=== PATIENT | female | born 1950 | race Caucasian/White ===

== ENCOUNTER 2021-06-22 00:24 | Inpatient (IN) | payer MEDICARE, OTHER ==
[2021-06-22] VITALS (42 sets, daily range): BP systolic 74–142; BP diastolic 35–81
[~2021-06-22 00:24] MED LIST: ADVAIR 250-501 EACH INH; ALLEGRA-D 12 H1 EAC1 PO; AMARYL2 M1 PO; B-12500 MCG PO; COREG3.125 MG PO; FLEXERIL PO; FUROSEMIDE 40 M40 MG PO; GABAPENTIN100 MG PO; IPRAT-ALBUT 0.5-3 ML INH; LEVEMIR100 UNIT/1 SUBQ; LISINOPRIL5 MG PO; MAGNESIUM250 M1 PO; NORCO5 PO; OMEPRAZOLE 20 M20 M1 PO; PREDNISONE 10 M10 MG PO; PRENATABS RX T1 EAC1 PO; PROAIR DIGIHAL90 MCG INH; TRADJENTA5 MG; XARELTO10 MG PO; ZINC50 M3 PO
[2021-06-22 03:45] LABS: ABSOLUTE BASOPHILS 0.1 thou/uL (0.0-0.2); ABSOLUTE EOSINOPHILS 0.1 thou/uL (0.0-0.7); ABSOLUTE LYMPHOCYTES 1.9 thou/uL (0.8-5.3); ABSOLUTE MONOCYTES 0.8 thou/uL (0.0-1.2); BASOPHILS 1.1 %; EOSINOPHILS 0.7 %; HEMATOCRIT 30.1 % (37.0-47.0); HEMOGLOBIN 9.7 gm/dL (12.0-15.0); LYMPHOCYTES 19.7 %; MCHC 32.3 g/dL (28.0-37.0); MCV 102.2 fL (80.0-100.0); MPV 9.2 fl. (7.2-11.1); NUCLEATED RBCS 0 /100WBC; PLATELET COUNT* 189 thou/uL (150-400); POLYS 70.5 %; RBC 2.94 mil/uL (4.20-5.00); WBC 9.9 thou/uL (4.0-11.0)
[2021-06-22 03:52] LABS: CALCIUM 7.4 mg/dL (8.5-10.1); CREATININE 2.2 mg/dL (0.6-1.3); POTASSIUM 4.2 mmol/L (3.5-5.1)
[2021-06-22 03:57] LABS: ALBUMIN 2.2 g/dL (3.4-5.0); MAGNESIUM 1.8 mg/dL (1.8-2.4); PHOSPHORUS* 2.4 mg/dL (2.5-4.9); TOTAL BILIRUBIN 0.7 mg/dL (<0.1-1.0); TOTAL PROTEIN 4.6 g/dL (6.4-8.2)
[2021-06-22 04:24] LABS: BE 5.8 mmol/L (-2 to +3); pH 7.436 (7.340-7.450)
[2021-06-22 04:26] LABS: PO2 148.5 mmHg (75.0-100.0)
--- NOTE | 2021-06-22 10:35 | EKG ---
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 : 1950 Requested By: Elizabeth Carey Order Number: [id number] Hugo MD: Nathaniel Jaramillo Measurements Intervals [place] Rate: 107 P: 30 MS: 129 QRS: 44 QRSD: 90 T: 48 QT: 335 QTc: 447 Interpretive Statements Sinus tachycardia Multiple premature complexes, vent & supraven Abnormal R-wave progression, early transition No previous ECG available for comparison Electronically Signed On 06-22-2021 10:35:23 CDT by Nathaniel Jaramillo [email or web address] <ELECTRONICALLY SIGNED> By: Nathaniel Jaramillo MD, FAC 06/22/21 1035 9 9 Nathaniel Jaramillo MD, [facility] /EPI
[2021-06-22 11:35] LABS: NUCLEATED RBCS 0 /100WBC
[2021-06-22 11:38] LABS: HEMOGLOBIN 9.3 gm/dL (12.0-15.0); MCH 32.5 pg (26.0-34.0); MCHC 32.2 g/dL (28.0-37.0); MCV 101.1 fL (80.0-100.0); MPV 9.2 fl. (7.2-11.1); PLATELET COUNT* 183 thou/uL (150-400); RBC 2.87 mil/uL (4.20-5.00); RDW-CV 15.4 % (10.5-14.5); WBC 9.3 thou/uL (4.0-11.0)
[2021-06-22 11:50] LABS: ALBUMIN 2.1 g/dL (3.4-5.0); APTT 23.1 Seconds (25.0-31.3); CALCIUM 7.8 mg/dL (8.5-10.1); MAGNESIUM 1.9 mg/dL (1.8-2.4); POTASSIUM 3.6 mmol/L (3.5-5.1); PROTIME 10.5 Seconds (9.20-11.50); TOTAL BILIRUBIN 0.6 mg/dL (<0.1-1.0)
[2021-06-22 12:26] LABS: ABSOLUTE EOSINOPHILS 0.2 thou/uL (0.0-0.7); ABSOLUTE MONOCYTES 0.3 thou/uL (0.0-1.2); ABSOLUTE NEUTROPHILS 6.9 thou/uL (1.6-8.1)
[2021-06-22 12:27] LABS: PLATELET ESTIMATE ADEQUATE
--- NOTE | 2021-06-22 14:19 | 2DMMODE ---
[place] [address] 2 D/M-MODE ECHOCARDIOGRAM Name: KACIE TRUONG [facility] [place].#: [id number] Admission: 06/22/21 Attend Phys: Elizabeth Carey Discharge: Date of : 54 Date of Service: 06/22/21 1419 Report #: [id number] THIS REPORT FOR: cc: Pollo Tamez MD, Ram MD Holkins,Nathaniel Thomas MD [facility] ~ APPROVED REPORT Study performed: 06/22/2021 10:44:02 EXAM: Comprehensive 2D, Doppler, and color-flow Echocardiogram Patient Location: In-Patient Room #: [facility] Status: routine BSA: 1.94 HR: 109 bpm BP: 129/35 mmHg Rhythm: NSR Other Information Study Quality: Good Indications resp failure 2D Dimensions IVSd: 11.04 (7-11mm) LVOT Diam: 20.06 (18-24mm) LVDd: 40.97 mm PWd: 10.62 (7-11mm) Ascending Ao: 29.80 (22-36mm) LVDs: 23.85 (25-40mm) Aortic Root: 27.71 mm Volumes Left Atrial Volume (Systole) LA ESV Index: 12.60 mL/m2 Aortic Valve AoV Peak Reggie.: 1.50 m/s AO Peak Gr.: 9.04 mmHg LVOT Max P.30 mmHg AO Mean Gr.: 5.67 mmHg LVOT Mean P.39 mmHg LVOT Max V: 1.04 m/s AO V2 VTI: 25.27 cm LVOT Mean V: 0.73 m/s NICK (VTI): 2.02 cm2 LVOT V1 VTI: 16.13 [place] [address] 2 D/M-MODE ECHOCARDIOGRAM Name: KACIE TRUONG Room: [address] IN ..#: [id number] Admission: 06/22/21 Attend Phys: Elizabeth Carey Discharge: Date of : 54 Date of Service: 06/22/21 1419 Report #: [id number] Mitral Valve E/A Ratio: 0.73 MV Decel. Time: 314.24 ms MV E Max Reggie.: 0.64 m/s MV PHT: 91.13 ms MVA (PHT): 2.41 cm2 TDI E/Medial E': 9.14 Medial E' Reggie.: 0.07 m/s Pulmonary Valve PV Peak Reggie.: 1.06 m/s PV Peak Gr.: 4.52 mmHg Left Ventricle The left ventricle is normal size. There is normal LV segmental wall motion. There is normal left ventricular wall thickness. Left ventricular systolic function is normal. The left ventricular ejection fraction is within the normal range. LVEF is 65-70%. Grade I - abnormal relaxation pattern. Right Ventricle The right ventricle is normal size. The right ventricular systolic function is normal. Atria The left atrium size is normal. The right atrium size is normal. Aortic Valve The aortic valve is normal in structure. No aortic regurgitation is present. There is no aortic valvular stenosis. Mitral Valve Mild mitral annular calcification. There is no mitral valve regurgitation noted. No evidence of mitral valve stenosis. Tricuspid Valve The tricuspid valve is normal in structure. Trace tricuspid regurgitation. Unable to assess PA pressure. Pulmonic Valve The pulmonary valve is normal in structure. There is no pulmonic valvular regurgitation[place] [address] 2 D/M-MODE ECHOCARDIOGRAM Name: DIONNEKACIE Stover Room: [address] IN [facility]#: [id number] Admission: 06/22/21 Attend Phys: Elizabeth Carey Discharge: Date of : 54 Date of Service: 06/22/21 1419 Report #: [id number] The aortic root is normal in size. IVC is normal in size and collapses >50% with inspiration. Pericardium There is no pericardial effusion. <Conclusion> The left ventricle is normal size. There is normal left ventricular wall thickness. Left ventricular systolic function is normal. The left ventricular ejection fraction is within the normal range. LVEF is 65-70%. Grade I - abnormal relaxation pattern. The right ventricle is normal size. The left atrium size is normal. The aortic valve is normal in structure. Mild mitral annular calcification. The tricuspid valve is normal in structure. IVC is normal in size and collapses >50% with inspiration. There is no pericardial effusion. There is normal LV segmental wall motion. <ELECTRONICALLY SIGNED> By: Nathaniel Jaramillo MD, FACC 06/22/21 1419 1419 141 Nathaniel Jaramillo MD, FACC /INF
[2021-06-22 18:44] LABS: URINE BILIRUBIN NEGATIVE (Negative); URINE BLOOD 1+ (Negative); URINE CLARITY CLEAR; URINE COLOR YELLOW; URINE GLUCOSE-RANDOM 2+ (Negative); URINE KETONES 1+ (Negative); URINE LEUKOCYTES-REFLEX NEGATIVE (Negative); URINE NITRITE-REFLEX NEGATIVE (Negative); URINE PROTEIN NEGATIVE (Negative); URINE UROBILINOGEN 0.2 E.U./dl (0.2-1.0)
[2021-06-22 18:56] LABS: SQUAMOUS 0-3 Few /LPF (0-3)
[2021-06-22 18:57] LABS: BACTERIA-REFLEX None Seen /HPF (None Seen); CASTS None Seen /LPF (None Seen); URIC ACID CRYSTALS >10 Many /LPF (None Seen); URINE RBC 0-2 Rare /HPF (0-2)
[2021-06-22 18:58] LABS: MUCUS None Seen strn/LPF (None Seen); URINE WBC-REFLEX None Seen /HPF (0-5)
--- NOTE | 2021-06-22 19:06 | CON ---
[address] [address] CONSULTATION Name: KACIE TRUONG Room: [address] IN M.R.#: [id number] Admission: 06/22/21 Attend Phys: Mulu Perez Discharge: Date of : 54 Report #: [id number] THIS REPORT FOR: cc: Pollo Tamez MD, Ram MD Pervez, Adeel MD ~ DATE OF CONSULTATION: 06/22/2021 REQUESTING PHYSICIAN: Elizabeth Carey MD INDICATION FOR CONSULTATION: Acute hypoxemic/hypercarbic respiratory failure/ventilator management. HISTORY OF PRESENT ILLNESS: A 70-year-old female with past medical history as mentioned below. Her previous workup was at another hospital, therefore information available is limited. However, the patient is noted to have a history of COPD and is on oxygen detention. She is also reported to have had chronic kidney disease. I do not have her baseline creatinine available. 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 The patient, however, developed respiratory distress and altered mental status and had to be endotracheally intubated yesterday. She arrived by ambulance at [facility] and then was transferred here. Her initial pCO2 was markedly elevated at 94.5. The patient at this time is on the ventilator with a 40% FiO2 and 8 of PEEP. She is ventilating and oxygenating adequately. She, however, remains actively bronchospastic. She is also having significant tachycardia, is in a narrow complex irregular rhythm. She is hypotensive and is requiring phenylephrine, but is only low dose at 27. She is also receiving propofol at 20. She has had a chest x-ray performed this morning. I do not see any pulmonary vascular congestion on the chest x-ray and I also do not see any large infiltrates. It is possible that there are small infiltrates or pleural effusions at bilateral lung bases. The patient does have a central line in place. She is febrile low grade at 37.8. She does have some swelling of lower extremities on exam. The patient is on the ventilator and therefore is unable to provide a further history or review of systems. PAST MEDICAL HISTORY: COPD, on oxygen detention, chronic kidney disease, has seen kidney doctors in the past, I do not have her baseline creatinine. She, however, has been on Xarelto, which likely indicates that her creatinine was not high enough to contraindicate Xarelto for a DVT in the right upper extremity. This was recently held for a planned vascular stent. Right lower lobe lung lobectomy indication not known. Gastroesophageal reflux disease, back pain, cataract and retinal surgery, hyperlipidemia. She has had irregular heart [facility] [address] [place] [address] CONSULTATION Name: KACIE TRUONG Room: [address] ADM IN .R.#: [id number] Admission: 06/22/21 Attend Phys: Mulu Perez Discharge: Date of : 54 Report #: [id number] rhythm in the past as well. SOCIAL HISTORY: Extensive history of smoking, unable to quantify at this time. No known history of heavy alcohol use or illegal drug use. CURRENT MEDICATIONS: List in [facility] reviewed. HOME MEDICATIONS: List in [facility] reviewed. ALLERGIES: SULFONAMIDE ANTIBIOTICS AND CERTAIN ADHESIVES. FAMILY HISTORY: No pertinent family history known at this time. PHYSICAL EXAMINATION: VITAL SIGNS: She is tachycardic and irregular rhythm. It is varying from 120-150, narrow complex. Blood pressure is 120/50, but she is on 27 of leonela and propofol of 20. Temperature is 37.8. She is breathing at 20. The set rate on the ventilator is 20. HEENT: Head is normocephalic and atraumatic. Endotracheal tube is in good position. NECK: Does not show raised JVP, asymmetry, mass or lymph nodes. CHEST: Symmetrical expansion on inspection and palpation. On auscultation, there are loud inspiratory as well as expiratory wheezes despite the fact that the patient is not overbreathing the ventilator. She appears to have increased work of breathing and appears to be uncomfortable. HEART: Irregular, tachycardia noted on auscultation as well. ABDOMEN: Soft and nontender. EXTREMITIES: Lower extremities do show 2+ edema bilaterally. There is no calf tenderness. SKIN: Dry and intact. NEUROLOGIC: Moves all extremities bilaterally equally and spontaneously with no focal deficit identified. LABORATORY DATA: The patient's chest x-ray is as described above. I reviewed both the films as well as the report. The patient's x-ray of the abdomen is unremarkable. The patient's lab work is in [facility] from this morning and reviewed. I ordered repeat labs now. This is pending. The patient's arterial blood gas from this morning also in [facility] reviewed. ASSESSMENT AND PLAN: 1. Acute on chronic hypercarbic respiratory failure. The patient is actively bronchospastic at this time. I would therefore sedate her more. She is hypotensive; however, I feel that there is still room to go up on phenylephrine. Therefore, we will go up on propofol. We will start fentanyl. If needed, [place] [address] CONSULTATION Name: KACIE TRUONG Room: [address] IN M.R.#: [id number] Admission: 06/22/21 Attend Phys: Mulu Perez Discharge: Date of : 54 Report #: [id number] will give p.r.n. Versed. If hypotension worsens, we can consider switching her over to Versed drip later on. We will decrease PEEP to 5 if blood pressure remains on the lower side. 2. Acute exacerbation of chronic obstructive pulmonary disease. She appears to be very bronchospastic on my exam. We will give Solu-Medrol 125 mg IV stat. We will subsequently start with 80 mg q.8 h. She is very tachycardic and tachycardia appears to be worsening and we are giving her breathing treatments. Therefore, we are increasing sedation as above. Hopefully, as a result of increase in sedation, her heart rate will come down and we will be able to give her more nebulized bronchodilators. 3. Hypotension/renal failure. The patient is ventilating and oxygenating adequately at this time; therefore, I intend to give her more IV fluids. I ordered a bolus of albumin now. I also ordered stat labs. Unless her creatinine is improving, I would be inclined to increase her current IV fluid rate. I may in fact consider bolusing her with more IV fluids as well. We can certainly diurese her later. 4. Fever/possible sepsis/pulmonary infiltrates. I do not see any large pulmonary infiltrates on the chest x-ray. It is possible that there are some small basilar infiltrates present. Regardless, she is in renal failure. She is hypotensive and she does have a low-grade fever; therefore, we will continue broad-spectrum antibiotics. She is very high risk for nephrotoxicity from vancomycin; therefore, I discontinued vancomycin. We will start linezolid. She remains on Zosyn. More cultures and serologies are also ordered. 5. Narrow complex tachycardia. I understand per Cardiology, she is having a multifocal atrial tachycardia. Hopefully, with improvement in respiratory status and sedation, this will improve. I will also go ahead and give her some magnesium sulfate IV. 6. Right upper extremity deep venous thrombosis. Down the line, we will plan to obtain upper as well as lower extremity venous Dopplers. Regardless for now, I agree with anticoagulating her. She has already had an echocardiogram but she is ordered Lovenox for anticoagulation. We will see trend on creatinine. If the creatinine is remaining elevated, then I will be inclined to switch her Lovenox over to IV heparin. 7. Gastroesophageal reflux disease, PPI IV. 8. Clostridium difficile prophylaxis. We will start Lactinex. 9. History of diabetes, on insulin sliding scale. The patient [place] [address] CONSULTATION Name: KACIE TRUONG Room: [address] ADM IN M.R.#: [id number] Admission: 06/22/21 Attend Phys: Mulu Perez Discharge: Date of : 54 Report #: [id number] Total time spent providing critical care to this patient today exceeds 50 minutes. <ELECTRONICALLY SIGNED> By: Sp Munoz MD 06/22/21 1906 1034 [id number] Munoz MD /nt
[2021-06-23] VITALS (56 sets, daily range): BP systolic 80–143; BP diastolic 41–82
[2021-06-23 03:34] LABS: ABSOLUTE LYMPHOCYTES 0.6 thou/uL (0.8-5.3); ABSOLUTE MONOCYTES 0.2 thou/uL (0.0-1.2); ABSOLUTE NEUTROPHILS 5.8 thou/uL (1.6-8.1); BASOPHILS 0.7 %; HEMATOCRIT 24.7 % (37.0-47.0); HEMOGLOBIN 8.1 gm/dL (12.0-15.0); LYMPHOCYTES 9.3 %; MCH 32.9 pg (26.0-34.0); MCHC 32.8 g/dL (28.0-37.0); MCV 100.3 fL (80.0-100.0); MONOCYTES 2.8 %; MPV 9.4 fl. (7.2-11.1); NUCLEATED RBCS 0 /100WBC; PLATELET COUNT* 173 thou/uL (150-400); POLYS 87.2 %; RBC 2.46 mil/uL (4.20-5.00); RDW-CV 15.7 % (10.5-14.5); WBC 6.6 thou/uL (4.0-11.0)
[2021-06-23 03:59] LABS: PHOSPHORUS* 2.4 mg/dL (2.5-4.9)
[2021-06-23 04:03] LABS: ALBUMIN 2.9 g/dL (3.4-5.0); CALCIUM 7.9 mg/dL (8.5-10.1); CREATININE 1.4 mg/dL (0.6-1.3); MAGNESIUM 2.5 mg/dL (1.8-2.4); POTASSIUM 3.8 mmol/L (3.5-5.1); TOTAL BILIRUBIN 0.7 mg/dL (<0.1-1.0); TOTAL PROTEIN 5.4 g/dL (6.4-8.2)
[2021-06-23 09:07] LABS: BE 2.7 mmol/L (-2 to +3); PCO2 30.9 mmHg (35.0-45.0)
[2021-06-23 09:08] LABS: PO2 136.8 mmHg (75.0-100.0)
--- NOTE | 2021-06-23 16:45 | EKG ---
[place] [address] ELECTROCARDIOGRAM REPORT Name: KACIE TRUONG Room: [address] ADM IN M.R.#: [id number] Admission: 06/22/21 Attend Phys: Elizabeth Carey Discharge: Date of : 54 Date of Service: 06/23/21 1125 Report #: [id number] THIS REPORT FOR: //name// 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1950 Requested By: Elizabeth Carey Order Number: [id number] Reading MD: Srinivasan Hopkins Measurements Intervals [place] Rate: 47 P: 27 NE: 158 QRS: 20 QRSD: 131 T: 29 QT: 530 QTc: 469 Interpretive Statements Sinus bradycardia Atrial premature complex Nonspecific intraventricular conduction delay Diffuse ST elevation, consider pericarditis Baseline wander in lead(s) I,II,aVR Compared to ECG 06/22/2021 03:00:15 Atrial premature complex(es) now present Intraventricular conduction delay now present ST (T wave) deviation now present Sinus tachycardia no longer present Electronically Signed On 06-23-2021 16:45:19 CDT by Srinivasan Hopkins [email or web address] <ELECTRONICALLY SIGNED> By: Srinivasan Hopkins MD, [facility] 06/23/21 1645 1125 1125 Srinivasan Hopkins MD, [facility] /EPI
[2021-06-24] VITALS (44 sets, daily range): BP systolic 89–125; BP diastolic 40–72
[2021-06-24 05:37] LABS: ABSOLUTE LYMPHOCYTES 0.4 thou/uL (0.8-5.3); ABSOLUTE MONOCYTES 0.5 thou/uL (0.0-1.2); ABSOLUTE NEUTROPHILS 10.6 thou/uL (1.6-8.1); BASOPHILS 0.1 %; HEMATOCRIT 24.3 % (37.0-47.0); HEMOGLOBIN 7.9 gm/dL (12.0-15.0); LYMPHOCYTES 3.4 %; MCH 32.7 pg (26.0-34.0); MCHC 32.4 g/dL (28.0-37.0); MONOCYTES 4.7 %; MPV 9.2 fl. (7.2-11.1); NUCLEATED RBCS 0 /100WBC; PLATELET COUNT* 194 thou/uL (150-400); POLYS 91.8 %; RBC 2.41 mil/uL (4.20-5.00); WBC 11.5 thou/uL (4.0-11.0)
[2021-06-24 05:51] LABS: CALCIUM 8.1 mg/dL (8.5-10.1); CREATININE 1.6 mg/dL (0.6-1.3); MAGNESIUM 2.4 mg/dL (1.8-2.4); POTASSIUM 4.6 mmol/L (3.5-5.1); TOTAL BILIRUBIN 0.4 mg/dL (<0.1-1.0); TOTAL PROTEIN 5.5 g/dL (6.4-8.2)
[2021-06-24 05:54] LABS: PHOSPHORUS* 3.6 mg/dL (2.5-4.9)
[2021-06-25] VITALS (48 sets, daily range): BP systolic 102–196; BP diastolic 58–109
[2021-06-25 04:56] LABS: ABSOLUTE LYMPHOCYTES 0.4 thou/uL (0.8-5.3); ABSOLUTE MONOCYTES 0.5 thou/uL (0.0-1.2); ABSOLUTE NEUTROPHILS 10.7 thou/uL (1.6-8.1); BASOPHILS 0.3 %; HEMATOCRIT 27.6 % (37.0-47.0); HEMOGLOBIN 8.8 gm/dL (12.0-15.0); LYMPHOCYTES 3.6 %; MCH 32.3 pg (26.0-34.0); MONOCYTES 4.7 %; MPV 9.9 fl. (7.2-11.1); NUCLEATED RBCS 0 /100WBC; PLATELET COUNT* 204 thou/uL (150-400); POLYS 91.4 %; RBC 2.73 mil/uL (4.20-5.00); RDW-CV 15.9 % (10.5-14.5); WBC 11.7 thou/uL (4.0-11.0)
[2021-06-25 05:09] LABS: ALBUMIN 3.1 g/dL (3.4-5.0); CALCIUM 8.6 mg/dL (8.5-10.1); CREATININE 1.9 mg/dL (0.6-1.3); MAGNESIUM 2.6 mg/dL (1.8-2.4); POTASSIUM 5.1 mmol/L (3.5-5.1); TOTAL BILIRUBIN 0.3 mg/dL (<0.1-1.0)
[2021-06-25 05:25] LABS: PHOSPHORUS* 2.7 mg/dL (2.5-4.9)
[2021-06-25 13:57] LABS: BE 3.9 mmol/L (-2 to +3); PO2 88.6 mmHg (75.0-100.0)
[2021-06-25 14:06] LABS: PCO2 56.2 mmHg (35.0-45.0)
[2021-06-26] VITALS (39 sets, daily range): BP systolic 125–182; BP diastolic 49–99
[2021-06-26 04:38] LABS: HEMATOCRIT 26.8 % (37.0-47.0); HEMOGLOBIN 8.7 gm/dL (12.0-15.0); MCH 32.9 pg (26.0-34.0); MCHC 32.5 g/dL (28.0-37.0); MCV 101.1 fL (80.0-100.0); NUCLEATED RBCS 0 /100WBC; PLATELET COUNT* 199 thou/uL (150-400); RBC 2.65 mil/uL (4.20-5.00); RDW-CV 15.9 % (10.5-14.5); WBC 10.9 thou/uL (4.0-11.0)
[2021-06-26 05:03] LABS: ALBUMIN 3.5 g/dL (3.4-5.0); CALCIUM 8.9 mg/dL (8.5-10.1); CREATININE 1.7 mg/dL (0.6-1.3); MAGNESIUM 2.4 mg/dL (1.8-2.4); POTASSIUM 4.6 mmol/L (3.5-5.1); TOTAL BILIRUBIN 0.4 mg/dL (<0.1-1.0); TOTAL PROTEIN 6.2 g/dL (6.4-8.2)
[2021-06-26 06:51] LABS: ABSOLUTE LYMPHOCYTES 0.8 thou/uL (0.8-5.3); ABSOLUTE MONOCYTES 0.1 thou/uL (0.0-1.2); METAMYELOCYTES 3 %; PLATELET ESTIMATE ADEQUATE
--- NOTE | 2021-06-26 14:31 | EKG ---
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 : 1950 Requested By: Maria Esteban Order Number: [id number] Hugo MD: Nathaniel Jaramillo Measurements Intervals [place] Rate: 71 P: 48 VT: 149 QRS: 30 QRSD: 85 T: 30 QT: 384 QTc: 418 Interpretive Statements Sinus rhythm Atrial premature complexes Low voltage, precordial leads Consider RVH or posterior infarct Compared to ECG 06/23/2021 11:25:17 Low QRS voltage now present Myocardial infarct finding now possible Sinus bradycardia no longer present Intraventricular conduction delay no longer present ST (T wave) deviation no longer present Electronically Signed On 06-26-2021 14:31:51 CDT by Nathaniel Jaramillo [email or web address] <ELECTRONICALLY SIGNED> By: Nathaniel Jaramillo MD, [facility] 06/26/21 1431 111 Nathaniel Jaramillo MD, [facility] /EPI
[2021-06-27] VITALS (25 sets, daily range): BP systolic 104–173; BP diastolic 61–89
[2021-06-27 04:42] LABS: ABSOLUTE BASOPHILS 0.1 thou/uL (0.0-0.2); ABSOLUTE LYMPHOCYTES 0.8 thou/uL (0.8-5.3); ABSOLUTE MONOCYTES 0.5 thou/uL (0.0-1.2); ABSOLUTE NEUTROPHILS 11.6 thou/uL (1.6-8.1); BASOPHILS 0.6 %; HEMATOCRIT 26.9 % (37.0-47.0); HEMOGLOBIN 8.7 gm/dL (12.0-15.0); LYMPHOCYTES 6.3 %; MCH 32.2 pg (26.0-34.0); MCHC 32.3 g/dL (28.0-37.0); MCV 99.8 fL (80.0-100.0); MONOCYTES 3.8 %; MPV 9.6 fl. (7.2-11.1); NUCLEATED RBCS 0 /100WBC; PLATELET COUNT* 218 thou/uL (150-400); POLYS 89.3 %; RBC 2.69 mil/uL (4.20-5.00); RDW-CV 15.8 % (10.5-14.5)
[2021-06-27 05:20] LABS: ALBUMIN 3.3 g/dL (3.4-5.0); CALCIUM 9.2 mg/dL (8.5-10.1); CREATININE 1.5 mg/dL (0.6-1.3); MAGNESIUM 2.3 mg/dL (1.8-2.4); POTASSIUM 5.3 mmol/L (3.5-5.1); TOTAL BILIRUBIN 0.4 mg/dL (<0.1-1.0); TOTAL PROTEIN 5.9 g/dL (6.4-8.2)
[2021-06-28] VITALS (18 sets, daily range): BP systolic 112–176; BP diastolic 67–96
[2021-06-29 00:43] VITALS: BP 137/65
[2021-06-29 05:48] VITALS: BP 132/70
[2021-06-29 12:00] VITALS: BP 143/83
[2021-06-29 20:00] VITALS: BP 131/64
[2021-06-30] VITALS: BP 129/71
[2021-06-30 04:00] VITALS: BP 109/55
[2021-06-30 06:19] LABS: HEMATOCRIT 32.3 % (37.0-47.0); HEMOGLOBIN 10.3 gm/dL (12.0-15.0); MCH 32.2 pg (26.0-34.0); MCHC 31.9 g/dL (28.0-37.0); MCV 101.1 fL (80.0-100.0); MPV 8.6 fl. (7.2-11.1); NUCLEATED RBCS 0 /100WBC; PLATELET COUNT* 279 thou/uL (150-400); WBC 13.1 thou/uL (4.0-11.0)
[2021-06-30 06:25] LABS: ALBUMIN 3.5 g/dL (3.4-5.0); CALCIUM 9.1 mg/dL (8.5-10.1); CREATININE 1.3 mg/dL (0.6-1.3); MAGNESIUM 2.4 mg/dL (1.8-2.4); POTASSIUM 3.6 mmol/L (3.5-5.1); TOTAL BILIRUBIN 0.4 mg/dL (<0.1-1.0); TOTAL PROTEIN 6.3 g/dL (6.4-8.2)
[2021-06-30 07:13] LABS: ABSOLUTE LYMPHOCYTES 2.4 thou/uL (0.8-5.3); ABSOLUTE MONOCYTES 0.1 thou/uL (0.0-1.2); ABSOLUTE NEUTROPHILS 10.6 thou/uL (1.6-8.1); METAMYELOCYTES 6 %; PLATELET ESTIMATE ADEQUATE
[2021-06-30 08:00] VITALS: BP 118/65
[2021-06-30] MEDS ORDERED: CEFDINIR300 MG PO (11:04)
[2021-06-30] MEDS ORDERED: NORCO5 PO (11:04)
[2021-06-30] MEDS ORDERED: PREDNISONE 10 M10 MG PO (11:04)
[2021-06-30] MEDS ORDERED: CARDIZEM CD240 M1 PO (11:04)
[2021-06-30 12:00] VITALS: BP 108/66
[2021-06-30 16:00] VITALS: BP 142/66
[2021-06-30 21:09] VITALS: BP 137/53
[2021-07-01 00:44] VITALS: BP 112/54
[2021-07-01 04:52] VITALS: BP 118/56
[2021-07-01 08:00] VITALS: BP 120/47
[2021-07-01 11:54] VITALS: BP 98/47
[2021-07-01 15:18] LABS: CALCIUM 9.4 mg/dL (8.5-10.1); CREATININE 1.6 mg/dL (0.6-1.3); MAGNESIUM 2.3 mg/dL (1.8-2.4)
[2021-07-01 16:46] VITALS: BP 90/57
[2021-07-01 19:48] VITALS: BP 128/59
[2021-07-02 00:56] VITALS: BP 110/62
[2021-07-02 06:15] VITALS: BP 131/54
[2021-07-02 08:06] VITALS: BP 138/66
[2021-07-02 11:54] VITALS: BP 130/56
[2021-07-02] MEDS ORDERED: LEVALBUTER1.25 MG/0. INH (13:48)
[2021-07-02] MEDS ORDERED: SINGULAIR 10 MG10 M1 PO (13:48)
[2021-07-02] MEDS ORDERED: BROVANA15 MCG/2 M INH (13:48)
[2021-07-02 17:12] VITALS: BP 127/54
== END 2021-07-02 18:03 | DRG 870 ==
LOC: M.ICU 00:24 → M.2W 06-28 21:33
PROVIDERS: Internal Medicine; Internal Medicine Critical Care Medicine; ADMIT Internal Medicine; ATTEND Internal Medicine
PROC: 5A1955Z Respiratory Ventilation, Greater than 96 Consecutive Hours (ICD-10-PCS; principal; 2021-06-22)
PROC: 0BH17EZ Insertion of Endotracheal Airway into Trachea, Via Natural or Artificial Opening (ICD-10-PCS; principal; 2021-06-22)
PROC: 5A09357 Assistance with Respiratory Ventilation, Less than 24 Consecutive Hours, Continuous Positive Airway Pressure (ICD-10-PCS; 2021-06-27)
PROC: 5A0935A Assistance with Respiratory Ventilation, Less than 24 Consecutive Hours, High Flow/Velocity Cannula (ICD-10-PCS; 2021-06-29)
PROC: 5A0935A Assistance with Respiratory Ventilation, Less than 24 Consecutive Hours, High Flow/Velocity Cannula (ICD-10-PCS; 2021-06-30)
PROC: 5A0935A Assistance with Respiratory Ventilation, Less than 24 Consecutive Hours, High Flow/Velocity Cannula (ICD-10-PCS; 2021-07-02)
DX: A41.9 Sepsis, unspecified organism (principal); J96.22 Acute and chronic respiratory failure with hypercapnia; J15.6 Pneumonia due to other Gram-negative bacteria; N17.0 Acute kidney failure with tubular necrosis; J96.21 Acute and chronic respiratory failure with hypoxia; J44.1 Chronic obstructive pulmonary disease with (acute) exacerbation; J44.0 Chronic obstructive pulmonary disease with (acute) lower respiratory infection; I82.431 Acute embolism and thrombosis of right popliteal vein; Z20.822 Contact with and (suspected) exposure to COVID-19; F17.210 Nicotine dependence, cigarettes, uncomplicated; E11.22 Type 2 diabetes mellitus with diabetic chronic kidney disease; K21.9 Gastro-esophageal reflux disease without esophagitis; E78.5 Hyperlipidemia, unspecified; N18.30 Chronic kidney disease, stage 3 unspecified; E11.51 Type 2 diabetes mellitus with diabetic peripheral angiopathy without gangrene; G89.29 Other chronic pain; M54.9 Dorsalgia, unspecified; D64.9 Anemia, unspecified; I70.8 Atherosclerosis of other arteries; I12.9 Hypertensive chronic kidney disease with stage 1 through stage 4 chronic kidney disease, or unspecified chronic kidney disease; I95.9 Hypotension, unspecified; Z66 Do not resuscitate; Z88.2 Allergy status to sulfonamides; Z88.8 Allergy status to other drugs, medicaments and biological substances; Z86.711 Personal history of pulmonary embolism; Z90.49 Acquired absence of other specified parts of digestive tract; Z90.711 Acquired absence of uterus with remaining cervical stump; Z79.4 Long term (current) use of insulin; Z23 Encounter for immunization; Z98.42 Cataract extraction status, left eye

== ENCOUNTER 2021-07-02 15:00 | Inpatient (IN) | payer MEDICARE, OTHER ==
[~2021-07-02] VITALS: Ht 152.4 cm; Wt 94.3 kg
--- NOTE | ~2021-07-02 | CON ---
[address] [address] CONSULTATION Name: DIONNEKACIEFEI LEUNG Room: [address] ADM IN M.R.#: [id number] Admission: 07/02/21 Attend Phys: Davonte Gibbs MD Discharge: Date of : 54 Report #: [id number] THIS REPORT FOR: cc: Pollo Tamez MD,Max James MD, MD ~ cc: Pollo Tamez MD DATE OF CONSULTATION: 07/09/2021 Please note at the time of this dictation, the patient was seen and physically examined by myself. REASON FOR CONSULTATION: Positive Hemoccult stool. HISTORY OF PRESENT ILLNESS: This is a 70-year-old female who after having a prolonged stay at [place] after being transferred on 06/22 from [facility] for acute respiratory failure with hypoxia and being ventilated for further care in the ICU here and had noted bilateral pneumonia. Due to her respiratory failure and her prolonged hospitalization, she became very weak and it was recommended that she go to rehab here at the facility to get her strength back before going home. They had noticed a slight drop in her hemoglobin from 9.7 to 8.9 and with her being on Xarelto with a history of DVT in the past consulted GI for this reason. In talking with the patient, she had an EGD and a colonoscopy with Dr. Antoine at [facility] in 2019. 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 She states she has no issues with her bowels, they moved soft and formed on a daily basis and she has no evidence of any bright red blood or melena and no issues with any nausea, vomiting, difficulty swallowing or any abdominal pain at this time. On admission, it was noted her hemoglobin from [facility] was 9.3, which is not far off from her baseline as of now. ALLERGIES: SULFA AND ADHESIVE. MEDICATIONS FROM HOME: Brovana, Xopenex, Singulair, Omnicef, Cardizem, [place], prednisone, vitamin, zinc, magnesium, Xarelto, omeprazole, Zestril, Tradjenta, Levemir, Amaryl, gabapentin, Lasix, Advair, Alisa, Flexeril, B12, Coreg, and her ProAir inhaler. PAST MEDICAL HISTORY: Hypertension, insulin-dependent diabetic, diverticulosis, GERD, stage 3 kidney disease, myofascial pain syndrome, COPD on 2 liters at bedtime, hyperlipidemia, reflux, lumbar spondylosis. PAST SURGICAL HISTORY: She has had a kyphoplasty, right lower lobectomy, [place] [address] CONSULTATION Name: KACIE TRUOGN XOCHITL Room: [address] IN [facility].#: [id number] Admission: 07/02/21 Attend Phys: Davonte Gibbs MD Discharge: Date of : 54 Report #: [id number] partial hysterectomy, cholecystectomy, posterior cervical diskectomy, oral surgery. FAMILY HISTORY: Negative for any GI or female cancers. SOCIAL HISTORY: She is a former smoker. Denies any alcohol use. REVIEW OF SYSTEMS: 12-point review of systems essentially negative except what is mentioned in the HPI. PHYSICAL EXAMINATION: VITAL SIGNS: Temperature 36.4, pulse 66, respirations 16, blood pressure 118/67. HEART: Regular rate and rhythm. LUNGS: Diminished with a few wheezes noted. ABDOMEN: Soft, positive bowel sounds in all four quadrants with no masses or tenderness noted. LABORATORY DATA: Hemoglobin yesterday was 9.7, today it is 8.9, white count is 14.2, platelets 263. BUN was 40, it is 31 currently with a GFR of 45. IMPRESSION: 1. Positive occult stool. 2. Anticoagulant therapy, DVT, Xarelto. 3. Status post bilateral pneumonia and prolonged ventilation. 4. Chronic obstructive pulmonary disease. Continuous O2 currently. 5. Chronic kidney disease 3. 6. Diabetes. PLAN: 1. Obtain records from [facility] in [facility] regarding her EGD and colonoscopies that have been done by Dr. Antoine. 2. Labs, iron studies, ferritin, B12 and soluble transferrin receptor. 3. No GI intervention noted to be done at this time. Continue to monitor for any overt bleeding. 4. Further recommendations to be made after Dr. Melendez sees the patient later today and is able to review the above. Thank you for allowing us to participate in this patient's care. Please do not hesitate to call with any questions in regards to this consult. By: [id number] Melendez MD /madalyn
[~2021-07-02 15:00] MED LIST changes: +BROVANA15 MCG/2 M INH; +CARDIZEM CD240 M1 PO; +CEFDINIR300 MG PO; +LEVALBUTER1.25 MG/0. INH; +SINGULAIR 10 MG10 M1 PO
[2021-07-02 20:00] VITALS: BP 119/67
[2021-07-03 05:11] LABS: HEMOGLOBIN 9.2 gm/dL (12.0-15.0); MCH 32.2 pg (26.0-34.0); MCHC 31.8 g/dL (28.0-37.0); MCV 101.5 fL (80.0-100.0); MPV 8.8 fl. (7.2-11.1); RBC 2.86 mil/uL (4.20-5.00); RDW-CV 15.5 % (10.5-14.5)
[2021-07-03 05:19] LABS: CALCIUM 9.7 mg/dL (8.5-10.1); CREATININE 1.1 mg/dL (0.6-1.3); POTASSIUM 4.1 mmol/L (3.5-5.1)
[2021-07-03 08:00] VITALS: BP 128/66
[2021-07-03 19:58] VITALS: BP 126/51
[2021-07-04 09:37] VITALS: BP 135/63
[2021-07-04 19:30] VITALS: BP 120/53
[2021-07-05 07:00] VITALS: BP 133/75
[2021-07-05 19:31] VITALS: BP 130/55
[2021-07-06 04:18] LABS: HEMATOCRIT 29.9 % (37.0-47.0); HEMOGLOBIN 9.7 gm/dL (12.0-15.0); MCH 32.9 pg (26.0-34.0); MCHC 32.3 g/dL (28.0-37.0); MCV 101.8 fL (80.0-100.0); MPV 9.1 fl. (7.2-11.1); RBC 2.93 mil/uL (4.20-5.00); RDW-CV 16.2 % (10.5-14.5); WBC 19.3 thou/uL (4.0-11.0)
[2021-07-06 05:06] LABS: ALBUMIN 3.3 g/dL (3.4-5.0); CALCIUM 9.6 mg/dL (8.5-10.1); CREATININE 1.5 mg/dL (0.6-1.3); MAGNESIUM 2.5 mg/dL (1.8-2.4); POTASSIUM 4.8 mmol/L (3.5-5.1); TOTAL BILIRUBIN 0.3 mg/dL (<0.1-1.0); TOTAL PROTEIN 6.3 g/dL (6.4-8.2)
[2021-07-06 07:30] VITALS: BP 123/57
[2021-07-06 19:00] VITALS: BP 92/47
[2021-07-06 21:07] VITALS: BP 116/58
[2021-07-07 07:34] VITALS: BP 164/44
[2021-07-07 19:00] VITALS: BP 126/58
[2021-07-08 08:32] LABS: HEMATOCRIT 27.9 % (37.0-47.0); HEMOGLOBIN 8.9 gm/dL (12.0-15.0); MCH 32.3 pg (26.0-34.0); MCHC 31.9 g/dL (28.0-37.0); MCV 101.1 fL (80.0-100.0); MPV 9.2 fl. (7.2-11.1); RBC 2.76 mil/uL (4.20-5.00); RDW-CV 16.2 % (10.5-14.5); WBC 14.2 thou/uL (4.0-11.0)
[2021-07-08 08:45] LABS: CALCIUM 9.4 mg/dL (8.5-10.1); CREATININE 1.2 mg/dL (0.6-1.3); POTASSIUM 4.1 mmol/L (3.5-5.1)
[2021-07-08 08:49] VITALS: BP 113/60
[2021-07-08 19:40] VITALS: BP 135/57
[2021-07-09 07:00] VITALS: BP 118/67
[2021-07-09 07:50] VITALS: BP 118/67
[2021-07-09 10:07] LABS: % SATURATION 23 % (20-39); IRON 76 ug/dL (50-175)
[2021-07-09 19:55] VITALS: BP 143/68
[2021-07-10 08:02] VITALS: BP 136/63
[2021-07-10 16:00] VITALS: BP 136/60
[2021-07-10 20:43] VITALS: BP 125/52
[2021-07-11 08:15] VITALS: BP 123/51
[2021-07-11 19:00] VITALS: BP 112/42
[2021-07-12 07:21] VITALS: BP 135/78
[2021-07-12 19:20] VITALS: BP 112/46
[2021-07-13 07:35] VITALS: BP 119/56
[2021-07-13 19:00] VITALS: BP 106/40
[2021-07-14 08:00] VITALS: BP 126/69
[2021-07-14 19:00] VITALS: BP 101/50
[2021-07-15 04:40] LABS: HEMATOCRIT 29.1 % (37.0-47.0); HEMOGLOBIN 9.3 gm/dL (12.0-15.0); MCH 32.4 pg (26.0-34.0); MCHC 32.1 g/dL (28.0-37.0); MCV 100.9 fL (80.0-100.0); MPV 9.5 fl. (7.2-11.1); RBC 2.88 mil/uL (4.20-5.00); RDW-CV 16.1 % (10.5-14.5); WBC 9.5 thou/uL (4.0-11.0)
[2021-07-15 05:10] LABS: CALCIUM 9.1 mg/dL (8.5-10.1); CREATININE 1.2 mg/dL (0.6-1.3); POTASSIUM 3.5 mmol/L (3.5-5.1)
[2021-07-15 08:00] VITALS: BP 102/44
[2021-07-15 19:00] VITALS: BP 116/53
[2021-07-16 04:25] LABS: HEMATOCRIT 27.2 % (37.0-47.0); HEMOGLOBIN 8.8 gm/dL (12.0-15.0); MCH 32.7 pg (26.0-34.0); MCHC 32.3 g/dL (28.0-37.0); MCV 101.1 fL (80.0-100.0); MPV 9.3 fl. (7.2-11.1); NUCLEATED RBCS 0 /100WBC; PLATELET COUNT* 177 thou/uL (150-400); RBC 2.69 mil/uL (4.20-5.00); RDW-CV 16.5 % (10.5-14.5); WBC 9.3 thou/uL (4.0-11.0)
[2021-07-16 04:44] LABS: CREATININE 1.2 mg/dL (0.6-1.3); POTASSIUM 3.6 mmol/L (3.5-5.1)
[2021-07-16 05:33] LABS: ABSOLUTE LYMPHOCYTES 1.7 thou/uL (0.8-5.3); ABSOLUTE MONOCYTES 0.3 thou/uL (0.0-1.2); ABSOLUTE NEUTROPHILS 7.3 thou/uL (1.6-8.1); ANISOCYTOSIS 1+; PLATELET ESTIMATE ADEQUATE; POIKILOCYTOSIS 1+
[2021-07-16 07:26] VITALS: BP 116/53
[2021-07-16 07:33] VITALS: BP 116/52
[2021-07-16] MEDS ORDERED: TRADJENTA5 MG PO (09:55)
[2021-07-16] MEDS ORDERED: B-12500 MCG PO (09:55)
[2021-07-16] MEDS ORDERED: COREG3.125 MG PO (09:55)
[2021-07-16] MEDS ORDERED: CARDIZEM CD240 M1 PO (09:55)
[2021-07-16] MEDS ORDERED: MAGNESIUM250 M1 PO (09:55)
[2021-07-16] MEDS ORDERED: PREDNISONE 10 M10 MG PO (09:55)
[2021-07-16] MEDS ORDERED: ADVAIR 250-501 EACH INH (09:55)
[2021-07-16] MEDS ORDERED: XARELTO10 MG PO (09:55)
[2021-07-16] MEDS ORDERED: GABAPENTIN100 MG PO (09:55)
[2021-07-16] MEDS ORDERED: FUROSEMIDE 40 M40 MG PO (09:55)
[2021-07-16] MEDS ORDERED: AMARYL2 M1 PO (09:55)
[2021-07-16] MEDS ORDERED: NORCO5 PO (09:55)
[2021-07-16] MEDS ORDERED: LEVEMIR100 UNIT/1 SUBQ (09:55)
[2021-07-16] MEDS ORDERED: LISINOPRIL5 MG PO (09:55)
[2021-07-16] MEDS ORDERED: PRENATABS RX T1 EAC1 PO (09:55)
[2021-07-16] MEDS ORDERED: SINGULAIR 10 MG10 M1 PO (09:55)
[2021-07-16] MEDS ORDERED: ZINC50 M3 PO (09:55)
[2021-07-16] MEDS ORDERED: FLEXERIL PO (09:55)
[2021-07-16] MEDS ORDERED: OMEPRAZOLE 20 M20 M1 PO (09:55)
[2021-07-16 10:29] VITALS: BP 116/53
== END 2021-07-16 10:57 | disposition home health service (06) | DRG 947 ==
LOC: M.REH 15:00
PROVIDERS: Internal Medicine; Nurse Practitioner Adult Health; ADMIT Physical Medicine & Rehabilitation; ATTEND Physical Medicine & Rehabilitation
PROC: 5A09357 Assistance with Respiratory Ventilation, Less than 24 Consecutive Hours, Continuous Positive Airway Pressure (ICD-10-PCS; principal; 2021-07-03)
PROC: 5A0935A Assistance with Respiratory Ventilation, Less than 24 Consecutive Hours, High Flow/Velocity Cannula (ICD-10-PCS; 2021-07-06)
PROC: 5A09357 Assistance with Respiratory Ventilation, Less than 24 Consecutive Hours, Continuous Positive Airway Pressure (ICD-10-PCS; 2021-07-15)
DX: R53.81 Other malaise (principal); J96.21 Acute and chronic respiratory failure with hypoxia; J96.22 Acute and chronic respiratory failure with hypercapnia; N17.0 Acute kidney failure with tubular necrosis; A41.9 Sepsis, unspecified organism; J15.6 Pneumonia due to other Gram-negative bacteria; K21.9 Gastro-esophageal reflux disease without esophagitis; N18.30 Chronic kidney disease, stage 3 unspecified; I70.8 Atherosclerosis of other arteries; G89.29 Other chronic pain; M54.9 Dorsalgia, unspecified; B37.9 Candidiasis, unspecified; E11.51 Type 2 diabetes mellitus with diabetic peripheral angiopathy without gangrene; I12.9 Hypertensive chronic kidney disease with stage 1 through stage 4 chronic kidney disease, or unspecified chronic kidney disease; E78.5 Hyperlipidemia, unspecified; E11.22 Type 2 diabetes mellitus with diabetic chronic kidney disease; Z88.8 Allergy status to other drugs, medicaments and biological substances; Z88.2 Allergy status to sulfonamides; Z98.49 Cataract extraction status, unspecified eye; Z79.4 Long term (current) use of insulin; Z90.711 Acquired absence of uterus with remaining cervical stump; Z90.49 Acquired absence of other specified parts of digestive tract; Z87.891 Personal history of nicotine dependence; Z79.01 Long term (current) use of anticoagulants; Z86.711 Personal history of pulmonary embolism